=== PATIENT | male | born 1940 | race Caucasian/White ===

== ENCOUNTER 2016-07-10 10:33 | Observation (INO) | payer MEDICARE, OTHER ==
--- NOTE | ~2016-07-10 | CN ---
Consultation Report [facility] [address] [place]. [address] NAME: SEBASTIAN TIERNEY : 38 STATUS : DIS Carol PAT#: [id number] AGE: 76 ADM/REG DATE : 07/10/16 MR#: [id number] REPORT SERV DATE: 07/12/16 DICTATED BY: MARIVEL MG DATE: 07/12/16 REPORT STATUS : Draft TRANSCRIBED BY: MODJackie DATE: 07/12/16 NEUROLOGICAL EVALUATION (CODE STROKE) IN THE EMERGENCY ROOM. DATE OF CONSULTATION: 07/10/2016 REQUESTING PHYSICIAN: Emergency room physician and team. CRITICAL CARE TIME OF EVALUATION: 65 minutes. HISTORY OF PRESENT ILLNESS: This is a 76-year-old male with known history of previous TIA x2, who presented to the emergency room within three hour of onset of left-sided "numbness." The patient denied weakness. Denied dizziness, difficulty with his speech, chewing and swallowing. Denied difficulty with his vision. Denied loss of consciousness, chest pain, or shortness of breath. The patient's symptoms started three hours prior to admission and upon arrival to the emergency room as per emergency room physician and per patient, the patient's symptoms have disappeared and went back to his "baseline." PAST MEDICAL HISTORY: History of GI bleed in December of 2015 secondary to diverticulosis. The patient has history of GERD, benign prostatic hypertrophy, arthritis. ALLERGIES: TO IVP DYE, IODINE, NONSTEROIDAL ANTI-INFLAMMATORIES, PENICILLINS, INFLUENZA VIRUS VACCINE AND? ASPIRIN, AND IBUPROFEN. FAMILY HISTORY: Negative for history of strokes. Positive for history of hypertension. SOCIAL HISTORY: The patient does not have any history of smoking or alcohol use. REVIEW OF SYSTEMS: The patient stated that he had history of rheumatic fever as a child at age 13. Has history of polyps in his colon. Otherwise, the patient denied symptoms of chest pain, shortness of breath, loss of consciousness, seizures, head trauma, difficulty with his speech, chewing and swallowing. Denied weakness involving his face or extremities. He stated that the numbness involving the left side of his body has disappeared as per the patient. He was feeling better." Inclusion and exclusion criteria for tPA were discussed with the patient. The patient stated that he did not want to receive any blood thinners in view of the fact that he had has almost from bleeding in December of last year. The patient had prior history of TIA and workup last year which showed "negative for vascular disease." A 14-point review of systems was negative. CT scan of the head done on emergency basis, showed no acute changes. MEDICATIONS: Prior to admission included aspirin 81 mg, Atorvastatin 10 mg, p.o. daily, vitamin B12 1000 mcg p.o. daily, Singulair 10 mg p.o. daily, omeprazole 40 mg p.o. daily, amlodipine 10 mg p.o. daily, and acetaminophen 500 mg on p.r.n. basis. Consultation Report [place] [id number] [facility] [place]. [address] NAME: SEBASTIAN TIERNEY : 38 STATUS : DIS Carol PAT#: [id number] AGE: 76 ADM/REG DATE : 07/10/16 MR#: [id number] REPORT SERV DATE: 07/12/16 DICTATED BY: MARIVEL MG DATE: 07/12/16 REPORT STATUS : Draft TRANSCRIBED BY: SANA DATE: 07/12/16 PHYSICAL EXAMINATION: VITAL SIGNS: Stable. Blood pressure was 156/62, pulse was 60, respirations 17, oxygen saturation 97%, temperature 97.6. HEAD AND NECK: Showed head to be normocephalic. There was no evidence of trauma. Auscultation of the neck show no evidence of bruits. EYE: Sclerae were not icteric. Conjunctiva was pink. ENT: Unremarkable. Neck was supple. There was no Kernig or Brudzinski. Cervical range of motion was not impaired. CHEST: Symmetrical. LUNGS: Clear to auscultation. HEART: Regular S1, S2. No S3, gallops were noted. ABDOMEN: Soft, nontender. No organomegaly. EXTREMITIES: No clubbing, cyanosis. There is no peripheral edema. Peripheral pulses were intact. SKIN: Clear. NEUROLOGICAL: The patient was alert, oriented to self, time, and place. His speech was fluent. There was no evidence of aphasia or dysarthria. Thought content and mood were appropriate. Cranial nerve examination 2 through 12 show no evidence of asymmetry or weakness at this at the time of the examination. Extraocular movements were full. There was no nystagmus. No limitation of upward or downward gaze was noted. Facial sensation, muscles of mastication show no evidence of asymmetry or weakness. Lower cranial nerves were intact. Tongue was midline. No atrophy or fibrillations were noted. Palate elevated symmetrically. Sternomastoid and trapezius muscles were normal. Motor exam, muscle bulk and tone was normal. Strength was 5/5 throughout. Deep tendon reflexes were 2/2 throughout. Sensory exam showed no evidence of deficits to pinprick light touch, temperature, and vibration. Cerebellar exam showed very minimal endpoint on coordination on the left, which as per the patient, he has had all his life. Gait likewise showed no evidence of abnormalities. The patient's NIH stroke scale was 0. LABORATORY STUDIES: WBC count 7.3, hemoglobin 15.4, hematocrit 45.9, platelet count 266,000. PT/INR 1. Sodium 142, potassium 4.2, BUN 10, creatinine 1.19. IMPRESSION: Transient ischemic episode versus cerebrovascular accident. The patient's symptoms have improved. His NIH scale stroke evaluation showed no significant deficits with NIH scale of 0. The patient stated that he would not take a blood thinner since he had a severe reaction and almost "bled to " in December of last year. Recommend to follow stroke protocol. Start Plavix. Monitor for any GI intolerance or dysfunction. Obtain serum lipid profile, serum vitamin B12 and folate level, vitamin D levels. Increased statin. According to the patient's labs, lipid panel, the patient's CT and CTA were within normal range. However, we did obtain an MRI of the brain to rule out a stroke. The patient had a recent history of transient ischemic attack. History of gastrointestinal bleeding on December of 2015 as per the patient, response to aspirin and nonsteroidal inflammatories he at that time was taking. Intolerance to aspirin Consultation Report [place] [id number] [facility] [place]. [address] NAME: SEBASTIAN TIERNEY : 38 STATUS : DIS Carol PAT#: [id number] AGE: 76 ADM/REG DATE : 07/10/16 MR#: [id number] REPORT SERV DATE: 07/12/16 DICTATED BY: MARIVEL MG DATE: 07/12/16 REPORT STATUS : Draft TRANSCRIBED BY: MODL DATE: 07/12/16 and nonsteroidal anti-inflammatories would recommend to continue stroke orders and to continue followup with Outpatient Neurology in addition to the primary physician. Echocardiogram to rule out significant abnormalities may constitute a risk for stroke. This was a critical care visit in the emergency room, code stroke. RKA/MODL Marivel Mg MD / [id number] CC: Curtis Blanc II, MD
--- NOTE | ~2016-07-10 | HP ---
History And Physical [place] [address] [facility] [place]. [address] NAME: SEBASTIAN TIERNEY : 38 STATUS : ADM Carol PAT#: [id number] AGE: 76 ADM/REG DATE : 07/10/16 MR#: [id number] REPORT SERV DATE: 07/10/16 DICTATED BY: ROSIE BLANC II DATE: 07/10/16 REPORT STATUS : Draft TRANSCRIBED BY: MODL DATE: 07/10/16 DATE OF ADMISSION: 07/10/2016 CHIEF COMPLAINT: Left-sided numbness and weakness. HISTORY OF PRESENT ILLNESS: The patient is a 76-year-old male with a history of hypertension, arthritis, and recent GI bleed who presented to [facility] due to acute left- sided numbness and weakness. The patient notes about 7 o'clock this morning he was getting up and about and began noticing numbness in his left arm, left jaw, and left leg with associated weakness in his left leg where he had difficulty ambulating. He states this lasted about 30 minutes before it began to tabby. The patient notified his and subsequently called EMS and was taken to the emergency room. In the ER, the patient had a CT of his head done which showed no acute abnormality, but chronic microvascular white matter ischemic changes and minimal old right basal ganglia lacunar infarct. An MRI was subsequently done which showed an area of minimal focal restricted diffusion in the right thalamus indicating a probable small acute infarct as well as atrophy. The Hospitalist Service was consulted for admission. Otherwise, currently the patient denies any dizziness, headache, palpitations, chest pain, or shortness of breath. He states his numbness and weakness has nearly completely resolved except for a small area in his index finger. Denies any nausea, vomiting, diarrhea. Denies any melena or hematochezia. Of note, the patient was in the hospital this past November with a fairly significant GI bleed, apparently diverticular. He was taking ibuprofen and was apparently also on aspirin at that point in time, but taken off all NSAIDs. REVIEW OF SYSTEMS: A 10-point review of systems is otherwise negative except for HPI. PAST MEDICAL HISTORY: 1. Hypertension. 2. Diverticulosis with history of diverticular bleed. 3. Degenerative joint disease and osteoarthritis. 4. GERD. 5. BPH. 6. Allergies. PAST SURGICAL HISTORY: Cholecystectomy. SOCIAL HISTORY: Denies any alcohol, tobacco, or drug use. Lives at home and is otherwise fairly independent. ALLERGIES: IODINE AND PENICILLIN. HOME MEDICATIONS: Tylenol, Singulair, and Prilosec. PHYSICAL EXAMINATION: History And Physical [address] [place]. [address] NAME: SEBASTIAN TIERNEY : 38 STATUS : ADM Carol PAT#: [id number] AGE: 76 ADM/REG DATE : 07/10/16 MR#: [id number] REPORT SERV DATE: 07/10/16 DICTATED BY: ROSIE BLANC II DATE: 07/10/16 REPORT STATUS : Draft TRANSCRIBED BY: SANA DATE: 07/10/16 VITAL SIGNS: Blood pressure 152/61, temperature 98, pulse 62, respirations 18, and O2 saturation 99% on room air. GENERAL: The patient is alert and oriented x3, in no acute distress. NECK: Supple. Nontender. No lymphadenopathy or thyromegaly. No carotid bruits. HEENT: Moist mucous membranes. Pupils equal, round, and reactive to light. Conjunctivae clear. RESPIRATORY: Lungs clear to auscultation bilaterally. No wheezes, rhonchi, or rales. Nonlabored breathing. CARDIOVASCULAR: Regular, rate, and rhythm. No murmurs, rubs, or gallops. ABDOMEN: Soft, nontender, nondistended. Normoactive bowel sounds. EXTREMITIES: No cyanosis, clubbing, or edema. NEUROLOGIC: No focal deficits. Cranial nerves 2 through 12 intact. 5/5 muscle strength in all extremities. No sensory deficits noted. PSYCHIATRIC: Appropriate mood and affect. LABORATORY DATA: Cell count and chemistry unremarkable. EKG: Normal sinus rhythm. No acute ST or T-wave changes. RADIOGRAPHIC DATA: 1. MRI of the brain with minimal focal area of restricted diffusion in the right thalamus indicating probable small acute infarct. Atrophy. Minimal chronic microvascular white matter ischemic changes. 2. MRA of the head with minimal irregular atherosclerotic narrowing of the carotid siphons. Otherwise negative MRA of the [place] and normal MRA of the neck. 3. Chest x-ray unremarkable. ASSESSMENT: The patient is a 76-year-old male with: 1. Acute cerebrovascular accident. 2. Hypertension. 3. Gastrointestinal bleed, this past year, likely diverticular. 4. Osteoarthritis with chronic pain. PLAN: The patient will be admitted on observation and started on aspirin and a statin. The patient has not had an echocardiogram in many years though previously normal, so we will repeat an echo with a bubble study. The patient will be placed on telemetry overnight. We will allow permissive hypertension and consult Neurology for further recommendations. SIERRA/SANA Rosie Blanc II, MD / [id number]
--- NOTE | ~2016-07-10 | DS ---
Discharge Summary [facility] [address] [place]. [address] NAME: SEBASTIAN TIERNEY : 38 STATUS : DIS Carol PAT#: [id number] AGE: 76 ADM/REG DATE : 07/10/16 MR#: [id number] REPORT SERV DATE: 07/12/16 DICTATED BY: ROSIE RIOS II DATE: 07/11/16 REPORT STATUS : Draft TRANSCRIBED BY: MODL DATE: 07/11/16 ADMISSION DATE: 07/10/2016 DISCHARGE DATE: 07/11/2016 DISCHARGE DIAGNOSES: 1. Acute cerebrovascular accident. 2. Hypertension. 3. History of diverticular gastrointestinal bleed. 4. Osteoarthritis. 5. History of gastroesophageal reflux disease. 6. History of benign prostatic hyperplasia. CONSULTS: ALISON Cobos with Neurology. BRIEF HISTORY OF PRESENT ILLNESS: The patient is a 76-year-old male with the above history, who presented to the [facility] due to left-sided numbness and weakness. For detailed history and physical examination, please see my note from 07/10/2016. HOSPITAL COURSE: After admission, the patient was started on aspirin after MRI in the ER showed a minimal focal area of restricted diffusion in the right thalamus indicating probable small acute infarct. Fortunately, the patient's symptoms seemed to have abated after only 30 minutes of onset. The patient only had some numbness of his left index finger by the time he was in the hospital. Currently, he is ambulatory with no focal neurologic deficits. Neurology was consulted and recommended baby aspirin and intensive dose statin therapy with atorvastatin 80 mg p.o. at bedtime. An echocardiogram was done, which showed intact LV systolic function of 61%. There was mild LV diastolic dysfunction. Otherwise, no abnormalities. MRA of the head showed minimal irregular atherosclerotic narrowing of the carotid siphons, otherwise negative MRA of the [place] and normal neck MRA. Currently, the patient is doing well. He is mildly hypertensive with blood pressure in the 150 to 170 range. We will start him on amlodipine and have him follow up with his primary care physician. DISCHARGE MEDICATIONS: 1. Aspirin 81 mg p.o. daily. 2. Lipitor 80 mg p.o. at bedtime. 3. Singulair 10 mg p.o. daily. 4. Prilosec 40 mg p.o. daily. 5. Tylenol 500 mg p.o. daily p.r.n. pain. 6. Amlodipine 10 mg p.o. daily. DISCHARGE INSTRUCTIONS: The patient will follow up with his PCP in one to two weeks. SIERRA/SANA Discharge Summary [place] [address] [place] [address] NAME: SEBASTIAN TIERNEY : 38 STATUS : DIS Carol PAT#: [id number] AGE: 76 ADM/REG DATE : 07/10/16 MR#: [id number] REPORT SERV DATE: 07/12/16 DICTATED BY: ROSIE RIOS II DATE: 07/11/16 REPORT STATUS : Draft TRANSCRIBED BY: SANA DATE: 07/11/16 Rosie Rios II, MD / [id number] CC: Rosie Rios II, MD
[~2016-07-10 10:33] MED LIST: ADVIL PO; ALLEGRA180 PO; ASAB PO; FLOVENT DISK50 MCG INH; HALF81 PO; PRILO PO; PRILOSEC40 MG PO; SINGULAIR1 PO
[2016-07-10 11:11] LABS: BASOPHILS 0.7 %; BASOPHILS ABSOLUTE 0.05 10/3/uL (0.0-0.16); EOSINOPHILS 1.1 %; EOSINOPHILS ABSOLUTE 0.08 10/3/uL (0.0-0.53); HEMOGLOBIN 15.4 g/dL (13.6-17.8); IMMATURE GRANULOCYTES 0.1 %; IMMATURE GRANULOCYTES ABSOLUTE 0.01 10/3/uL (0.0-0.11); LYMPHOCYTES 26.7 %; LYMPHOCYTES ABSOLUTE 1.96 10/3/uL (0.67-4.30); MEAN CORPUS HGB CONC 33.6 g/dL (32.0-36.0); MEAN CORPUSCULAR HEMOGLOB 29.4 pg (26.0-34.0); MEAN PLATELET VOLUME 10.6 fL (9.2-13.0); MONOCYTES 8.5 %; MONOCYTES ABSOLUTE 0.62 10/3/uL (0.21-1.20); NEUTROPHILS 62.9 %; NEUTROPHILS ABSOLUTE 4.61 10/3/uL (2.02-8.40); PLATELET COUNT 266 10/3/uL (150-400); WHITE BLOOD CELLS 7.3 10/3/uL (4.5-10.5)
[2016-07-10 11:12] LABS: HEMATOCRIT 45.9 % (40.0-51.0); MANUAL DIFF NO %; MEAN CORPUSCULAR VOLUME 87.6 fL (80-100); RED CELL COUNT 5.24 10/6/uL (4.7-6.1)
[2016-07-10 11:32] LABS: BUN (BLOOD UREA NITROGEN) 10 MG/DL (6-23); CALCIUM, SERUM 9.5 MG/DL (8.5-10.4); CHLORIDE, SERUM 105 MMOL/L (96-112); CO2 (CARBON DIOXIDE) 28 MMOL/L (24-34); CREATININE 1.19 MG/DL (0.70-1.30); GFR AFRICAN AMERICAN 68 ML/MIN (>=60); GFR NON AFRICAN AMERICAN 59 ML/MIN (>=60); GLUCOSE, SERUM 95 MG/DL (60-99); POTASSIUM, SERUM 4.2 MMOL/L (3.5-5.3); SGOT(AST) 20 U/L (5-40); SGPT(ALT) 18 U/L (5-65); SODIUM, SERUM 142 MMOL/L (135-148); TOTAL PROTEIN 7.7 G/DL (6.0-8.5); TROPONIN I <0.02 NG/ML (<0.05)
[2016-07-10 11:35] LABS: A/G RATIO 1.1 (0.7-1.9); ALKALINE PHOSPHATASE 78 U/L (45-117); GLOBULIN 3.7 G/DL (2.5-4.1)
[2016-07-10 11:51] LABS: PARTIAL THROMBO TIME 30.9 SEC (22.5-37.2)
[2016-07-10] MEDS ORDERED: PRILOSEC40 MG PO (11:58)
[2016-07-10] MEDS ORDERED: SINGULAIR1 PO (11:58)
[2016-07-10] MEDS ORDERED: ACET500CAP PO (11:59)
[2016-07-10 16:23] LABS: CK-MB 1.1 NG/ML; CPK 92 U/L (0-200)
[2016-07-10 19:53] LABS: CHOL/HDL RATIO(NOT ORDER) 4.3 (0-5); CHOLESTEROL 207 MG/DL (< 200); CK-MB 0.9 NG/ML; CPK 93 U/L (0-200); HDL CHOLESTEROL 48 MG/DL (> 39); LDL CHOLESTEROL 126 MG/DL (< 130); NON-HDL CHOLESTEROL 159 MG/DL (< 160); PHOSPHORUS, SERUM 3.4 MG/DL (2.5-4.5); TRIGLYCERIDE 168 MG/DL (< 150); TROPONIN I <0.02 NG/ML (<0.05)
[2016-07-11 04:01] LABS: CPK 75 U/L (0-200); TROPONIN I <0.02 NG/ML (<0.05)
[2016-07-11 12:14] LABS: CPK 88 U/L (0-200); TROPONIN I <0.02 NG/ML (<0.05)
[2016-07-11 12:15] LABS: CK-MB 0.9 NG/ML
[2016-07-11] MEDS ORDERED: LIPITOR10 PO (17:17)
[2016-07-11] MEDS ORDERED: NORV10 PO (17:18)
[2016-07-11] MEDS ORDERED: ASAB PO (17:23)
[2016-07-11] MEDS ORDERED: B12100T PO (17:25)
[2016-07-11] MEDS ORDERED: CYANO1000T PO (17:28)
== END 2016-07-11 17:00 | disposition home or self-care (01) ==
LOC: ER 10:33 → CDU1 14:03
PROVIDERS: Emergency Medicine; Internal Medicine
DX: I63.9 Cerebral infarction, unspecified (principal); I10 Essential (primary) hypertension; M19.90 Unspecified osteoarthritis, unspecified site; K21.9 Gastro-esophageal reflux disease without esophagitis; Z90.49 Acquired absence of other specified parts of digestive tract; Z88.0 Allergy status to penicillin; Z88.8 Allergy status to other drugs, medicaments and biological substances; Z79.899 Other long term (current) drug therapy; Z79.82 Long term (current) use of aspirin
CPT/HCPCS: 36415; 70450; 70544; 70547; 70551-52; 71010; 80053; 80061; 82550; 82553; 83036; 83735; 84100; 84484; 85025; 85610; 85730; 86850; 86900; 86901; 93005; 99285; A9270-GY; C8929; G0378; Q9957